=== PATIENT | male | born 1965 | race African-American/Black ===

== ENCOUNTER 2021-05-01 12:20 | Emergency (ER) | payer OTHER ==
[~2021-05-01] VITALS: Ht 165.1 cm; Wt 97.3 kg
--- NOTE | 2021-05-01 16:55 | PHYS DOC ---
Past Medical History Past Medical History: No Pertinent History Additional Past Medical Histor: see's dr crum Past Surgical History: No Surgical History Smoking Status: Never Smoker Alcohol Use: None Drug Use: None General Adult EDM: Chief Complaint: SHORTNESS OF BREATH HPI: HPI: Patient is a 55 year old male who presents with about 1 week history of cough, shortness of breath, fatigue, malaise, myalgias, subjective fevers and chills. He is not vaccinated against COVID-19, nor is he vaccinated against influenza. His mother recently tested positive for COVID-19. He does not know if she is vaccinated or not. He denies severe chest pain, denies severe dyspnea, denies dyspnea with exertion. Denies lower extremity pain or swelling. He reports that he usually gets bronchitis and demands antibiotics, repeatedly. He reports that his primary care physician "always gives me antibiotics." The patient denies any history of known pulmonary disease, denies any history of chronic bronchitis, denies history of smoking, asthma, COPD, emphysema. He denies recent travel, surgery, hospitalization. He reports that he has been eating and drinking well. He denies abdominal pain. He does report some nausea on occasion, with gagging. No vomiting. Review of Systems: Review of Systems: Constitutional: Subjective fever, chills, myalgias and malaise. Eyes: Denies change in visual acuity. [] HENT: Nasal congestion. Mild sore throat. Respiratory: Dry cough, denies hemoptysis. Mild dyspnea. Occasional wheezing. Cardiovascular: Denies chest pain or edema. [] GI: Denies abdominal pain. Reports mild nausea. No vomiting. No diarrhea. Musculoskeletal: Denies back pain or joint pain. Reports diffuse myalgias. Integument: Denies rash. [] Neurologic: Denies headache, focal weakness or sensory changes. [] Psychiatric: Denies depression or anxiety. [] Heart Score: C/O Chest Pain: No Risk Factors: Risk Factors: DM, Current or recent (<one month) smoker, HTN, HLP, family history of CAD, obesity. Risk Scores: Score 0 - 3: 2.5% MACE over next 6 weeks - Discharge Home Score 4 - 6: 20.3% MACE over next 6 weeks - Admit for Clinical Observation Score 7 - 10: 72.7% MACE over next 6 weeks - Early Invasive Strategies Allergies: Allergies: Allergies Coded Allergies Type Severity Reaction Last Updated Verified No Known Drug Allergies 04/16/15 No Physical Exam: PE: Constitutional: Well developed, well nourished, no acute distress, non-toxic appearance. [] HENT: Normocephalic, atraumatic, oropharynx patent and clear without exudate or erythema, mucous membranes are moist. TMs are clear bilaterally. Eyes: Sclera are clear, conjunctive are clear Neck: Normal range of motion, no tenderness, supple, no stridor. Trachea is midline. Cardiovascular:Heart rate regular rhythm, +2 radial and +2 posterior tibial pulses bilaterally Lungs & Thorax: Respirations are nonlabored, occasional coarse rhonchi that satish r with coughing, no wheezing, no stridor, no tachypnea, no retractions, speaks in full and clear sentences. No evidence of distress. Abdomen: Abdomen is soft, obese, nondistended, nontender Skin: Warm, dry, no erythema, no rash. [] Back: No tenderness, no CVA tenderness. [] Extremities: No tenderness, no cyanosis, no clubbing, ROM intact, no edema. No calf tenderness. Neurologic: He is awake, alert, conversant, fully oriented, ambulatory with a steady gait, grossly normal motor function. Psychologic: Affect is flat. [] Current Patient Data: Vital Signs: Vital Signs Date Time Temp Pulse Resp B/P (MAP) Pulse Ox O2 Delivery O2 Flow Rate FiO2 05/01/21 15:40 98.4 83 19 146/70 (95) 97 Room Air 98.4 EKG: EKG: [] Radiology/Procedures: Radiology/Procedures: IMAGING REPORT Signed PATIENT: SAMANTHA CAMPOS OACCOUNT: [id number] : 1965 LOCATION: ER AGE: 55 SEX: M EXAM STATUS: REG ER ORD. PHYSICIAN: LOC RIVERA DO REASON: cough, covid concern PROCEDURE: PORTABLE CHEST 1V XR CHEST 1V CLINICAL INDICATIONS: Reason: cough, covid concern / Spl. Instructions: / History: COMPARISON: None available. Findings: Ill-defined nodular and interstitial infiltrates are seen bilaterally. No pleural effusion or pneumothorax is seen. Old granulomatous disease is evident. The heart size, pulmonary vasculature, mediastinum and both freedom are unremarkable. IMPRESSION: Ill-defined nodular and interstitial lung infiltrates are seen bilaterally. Electronically signed by: Marilyn Feliciano MD (05/01/2021 6:24 PM) [id number] DICTATED and SIGNED BY: MARILYN FELICIANO MD DATE: 05/01/21 [id number] 0 Course & Med Decision Making: Course & Med Decision Making Pertinent Labs and Imaging studies reviewed. (See chart for details) I ordered Tessalon Perles for the patient for his cough. Chest x-ray shows mild Covid pneumonia/pneumonitis. He manifests no evidence of respiratory distress. Oxygen saturation is 96 to 98% on room air. He manifests no evidence of tachypnea. Vital signs are all stable. I have discussed the findings, differential diagnosis and plan of care with the patient. The patient is frustrated because I am not giving him antibiotics for "bronchitis." His Covid test is negative. I explained that his symptoms are very classic for Covid. Covid pneumonia in the absence of hypoxia or requirement of supplemental oxygen does not require further intervention, and this does not require antibiotics, especially at 6 to 7 days of onset of illness. I explained that Covid is a viral illness, and it should be allowed to run its course. I did explain very strict return precautions to him. I told him that he should obtain a home pulse oximeter, and if he develops any more severe dyspnea, chest pain, evidence of hypoxia, then he may return immediately. In the meantime, he is to continue s [facility] isolate. He should take [id number] Tylenol and ibuprofen for pain or fever symptoms. He should stay well-hydrated, get plenty of rest. He may take [id number] vitamin D supplements as well. He is frustrated that I do not have a specific timeframe to tell him when he will get better. I explained that there is no specific timeframe on when Covid symptoms will completely resolve, as each patient in each case is different. He will not be given antibiotics. I explained that I will give him prescriptions for Zofran for nausea, Tessalon Perles to help with cough and an inhaler to use as needed for any severe coughing and/or wheezing, should this occur. Strict return precautions are given. Zhen Disclaimer: Zhen Disclaimer: This electronic medical record was generated, in whole or in part, using a voice recognition dictation system. Departure Departure Impression: Primary Impression: COVID-19 Disposition: 01 HOME / SELF CARE / HOMELESS Condition: STABLE Referrals: BASILIO CRUM MD (PCP) Additional Instructions: You have been tested for or diagnosed with COVID-19. It is an infection caused by a new type of coronavirus. COVID-19 will cause cold-like or mild flu symptoms in most. It can cause more severe symptoms like problems breathing in some. There is no treatment for COVID-19. The body will clear the infection over time. Self-care will help to ease discomfort. Steps to Take: Self-Care Rest as needed. Healthy habits may help you feel better. Steps include: Choose healthy foods including fruits and vegetables. Drink water throughout the day. Get plenty of sleep each night. If you smoke, try to quit. It may ease breathing. Avoid alcohol. Keep Others Healthy The virus can spread to others. Droplets are released every time you sneeze or cough. The droplets can get into the mouth, nose, or eyes of people near you and lead to infection. To lower the chances of spreading COVID-19 to others: Stay at home until your doctor has said it is safe to leave. If you tested positive this will mean staying isolated until both of the following are true: At least 7 days have passed since the start of illness. You are free of fever for at least 72 hours without the use of medicine. During this time: - Avoid public areas, events, or transportation. Do not return to work or school until your doctor has said it is safe to do so. - Call ahead if you need to go to a medical center. Let them know you may have COVID-19. It will help them guide you where to go. They may also ask you to wear a facemask when you come to the office. - If you call for emergency medical services, let them know you may have COVID- 19. While at home: - Try to avoid close contact with others. Stay about 6 feet away. - If possible, spend most of your time in a separate room from others. - Use a face mask if you will be in close contact with others such as sharing a room or vehicle. - Have someone wipe down common surfaces in the home. Use household [employer] on areas like doorknobs, counters, or sinks. - Cough or sneeze into a tissue. Throw the tissue away right after use. If a tissue is not available, cough or sneeze into your elbow. - Wash your hands often. Wash them after sneezing or coughing. Use soap and water and wash for at least 20 seconds. Alcohol based hand fur dry cleaner hand can be used if soap and water is not available. - Do not prepare food for others. Avoid sharing personal items like forks, spoons, or toothbrushes. - Avoid close contact with pets while you are sick. There is no evidence of the virus passing to pets. This is a safety step until more is known about this virus. Isolation can be frustrating. Social interaction can help. Keep in touch with friends and family through phone and tech options. You can still interact with others in your home, just keep a safe distance of about 6 feet. Follow-up: Your doctors office will check in with you to see if there are any changes in your health. You may be asked to keep track of symptoms to share with them. They will also let you know when you are clear to be in public again. Problems to Look Out For: Contact your doctor if your recovery is not going as you expect. Get emergency care if you have problems such as: - Trouble breathing - Nonstop chest pain or pressure - Changes in awareness, confusion, or problems waking - Lips or face have bluish color - Worsening of symptoms If you think you have an emergency, call for emergency medical services right away. As taken from [facility] Albuterol Sulfate (VENTOLIN HFA INHALER) 18 Gm Hfa.aer.ad 2 PUFF INH Q4HRS for WHEEZING, #1 EACH 2 Refills Prov: MIGUELMATTEOAlexys Harmon DO 05/01/21 Benzonatate (BENZONATATE) 200 Mg Capsule 1 CAP PO PRN TID PRN for cough, #20 CAP 0 Refills Prov: MIGUELLOC Harmon DO 05/01/21 Ondansetron Hcl (ONDANSETRON HCL) 4 Mg Tablet 1 TAB PO PRN Q6HRS for vomiting, #15 TAB 1 Refill Prov: LOC RIVERA DO 05/01/21 LOC RIVERA DO May 01, 2021 16:55
[2021-05-01] MEDS ORDERED: BENZONATATE 100 MG CAPSULE. PO ONE (17:15)
[2021-05-01 17:35] LABS: INFLUENZA A PATIENT NEGATIVE (NEGATIVE); INFLUENZA B PATIENT NEGATIVE (NEGATIVE)
--- NOTE | 2021-05-01 18:26 | RAD ---
XR CHEST 1V CLINICAL INDICATIONS: Reason: cough, covid concern / Spl. Instructions: / History: COMPARISON: None available. Findings: Ill-defined nodular and interstitial infiltrates are seen bilaterally. No pleural effusion or pneumothorax is seen. Old granulomatous disease is evident. The heart size, pulmonary vasculature, mediastinum and both freedom are unremarkable. IMPRESSION: Ill-defined nodular and interstitial lung infiltrates are seen bilaterally. Electronically signed by: Pranav Feliciano MD (05/01/2021 6:24 PM) [id number]
[2021-05-01] MEDS ORDERED: BENZ200C47 PO (18:37)
[2021-05-01] MEDS ORDERED: VENTOLIN HFA18 GM INH (18:37)
[2021-05-01] MEDS ORDERED: ONDA-84 PO (18:37)
[2021-05-01 18:47] VITALS: BP 135/89
== END 2021-05-01 19:14 | disposition home or self-care (01) ==
LOC: ER 12:20
DX: U07.1 COVID-19 (principal)
CPT/HCPCS: 71045; 87428; 99285-25